=== PATIENT | male | born 1970 | race Caucasian/White ===

== ENCOUNTER 2021-03-25 11:29 | Observation (INO) | payer OTHER ==
[2021-03-25 12:01] LABS: Absolute Neutrophil Ct (ANC) 18.63 (1.4-6.9); Basophil (Absolute #) 0.01 (0-0.4); Eosinophil (Absolute #) 0 (0-0.5); Hematocrit 43.1 % (42-50); Hemoglobin 15.1 gm/dl (12.5-18.0); Lymphocyte (Absolute #) 1.05 (1.0-4.6); Mean Cell Volume 87.4 fl (78-100); Mean Corpuscular Hemoglobin 30.6 pg (26-32); Mean Platelet Volume 11.4 fl (7.5-11.0); Monocyte (Absolute #) 1.27 (0.0-1.3); Monocytes % 6.1 % (0.0-12.0); Neutrophil % 88.9 % (36.0-66.0); Platelet Count 158 K/mm3 (150-450); Red Blood Count 4.93 M/mm3 (4.1-5.6)
[2021-03-25] MEDS ORDERED: DUONEB 0.5-3 MG/3 ml Neb IH ONE ×2 (12:01→12:50)
[2021-03-25] MEDS ORDERED: solu-MEDROL 125 MG, Sterile H2O 10 ml 2 ML IV ONE ×2 (12:01)
--- NOTE | 2021-03-25 12:02 | ERPHSYRPT ---
- History of Present Illness Time Seen by Provider: 03/25/21 11:45 Source: patient Exam Limitations: no limitations Patient Subjective Stated Complaint: pt here for increase sob for 2 days , with loose stools, , pain with a deep breath, hes girlfriend is ill and in hospital Triage Nursing Assessment: pt alert, face mask in place, resp labored with excertion, skin w/d/p. no cough Physician History: Patient is a 50-year-old male presents to our ED for evaluation of shortness of breath. Shortness of breath has been ongoing for approximately 2 days. Patient describes shortness of breath is progressively worsening. Shortness of breath associated with pain upon deep inspiration. He is also experiencing loose stools. Patient states his girlfriend recently diagnosed with bronchitis. Patient appears labored with exertion. No active chest pain. Symptoms are progressive. Symptoms are moderate in intensity. No specific worsening improving factors. No obvious Covid exposures. Patient is vaccinated for Covid. Patient voices no other complaints concerns at this time. Timing/Duration: day(s) (2 days) Severity: moderate Modifying Factors: Improves With: other (Exertion worsens symptoms.) Associated Symptoms: other (Shortness of breath), No vomiting, No abdominal pain, No chest pain Allergies/Adverse Reactions: No Known Drug Allergies Allergy (Unverified 03/25/21 11:47) Home Medications: No Reportable Medications [No Reported Medications] 03/25/21 [History] Hx Tetanus, Diphtheria Vaccination/Date Given: No Hx Influenza Vaccination/Date Given: No Hx Pneumococcal Vaccination/Date Given: No Immunizations Up to Date: Yes Travel Risk - International Travel Have you traveled outside of the country in past 3 weeks: No - Coronavirus Screening Are you exhibiting any of the following symptoms?: Yes Symptoms: Shortness of Breath, Vomiting/Diarrhea, Headaches/Body Aches/Fatigue Close contact with a COVID-19 positive Pt in past 14-21 Days: No - Vaccine Status Have you recieved a Covid-19 vaccination: Yes 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 - Review of Systems Constitutional: No Symptoms, No Fever, No Chills Eyes: No Symptoms Ears, Nose, & Throat: No Symptoms Respiratory: No Symptoms, No Cough, No Dyspnea Cardiac: No Symptoms, No Chest Pain, No Edema, No Syncope Abdominal/Gastrointestinal: No Symptoms, No Abdominal Pain, No Nausea, No Vomiting, No Diarrhea Genitourinary Symptoms: No Symptoms, No Dysuria Musculoskeletal: No Symptoms, No Back Pain, No Neck Pain Skin: No Symptoms, No Rash Neurological: No Symptoms, No Dizziness, No Focal Weakness, No Sensory Changes Psychological: No Symptoms Endocrine: No Symptoms Hematologic/Lymphatic: No Symptoms Immunological/Allergic: No Symptoms All Other Systems: Reviewed and Negative - Past Medical History Pertinent Past Medical History: No - Past Surgical History Past Surgical History: No - Social History Smoking Status: Never smoker Exposure to second hand smoke: No Drug Use: none Patient Lives Alone: No - Nursing Vital Signs Nursing Vital Signs: Initial Vital Signs Temperature 97.4 F 03/25/21 11:38 Pulse Rate 120 H 03/25/21 11:38 Respiratory Rate 32 H 03/25/21 11:38 Blood Pressure 144/89 03/25/21 11:38 O2 Sat by Pulse Oximetry 94 L 03/25/21 11:38 Pain Scale Pain Intensity 0 - Physical Exam General Appearance: no apparent distress, alert Eye Exam: PERRL/EOMI, eyes nml inspection Ears, Nose, Throat Exam: normal ENT inspection, TMs normal, pharynx normal, moist mucous membranes Neck Exam: normal inspection, non-tender, supple, full range of motion Respiratory Exam: normal breath sounds, lungs clear, respiratory distress (Mild respiratory distress with labored breathing.), airway intact, No chest tenderness Cardiovascular Exam: regular rate/rhythm, normal heart sounds, normal peripheral pulses Gastrointestinal/Abdomen Exam: soft, normal bowel sounds, No tenderness, No mass Back Exam: normal inspection, normal range of motion, No CVA tenderness, No vertebral tenderness Extremity Exam: normal inspection, normal range of motion, pelvis stable Neurologic Exam: alert, oriented x 3, cooperative, normal mood/affect, nml cerebellar function, nml station & gait, sensation nml, No motor deficits Skin Exam: normal color, warm, dry, No rash Lymphatic Exam: No adenopathy SpO2 Interpretation: normal SpO2: 96 O2 Delivery: Room Air - Course Nursing assessment & vital signs reviewed: Yes EKG Interpreted by Me: RATE (120), Sinus Rhythm, Right [place] Deviation, NORMAL INTERVALS - CT Exams Chest CT Interpretation: Tele-radiologist Report (Pulmonary embolus evaluation limited by poor contrast opacification. No obvious central pulmonary embolus. Left up per lobe consolidating pneumonia. Incidental fatty liver and splenomegaly. Heart not enlarged. Aorta and normal course and caliber. No pathologic mediastinal lymphadenopathy.) Ordered Tests: Active Orders 24 hr Category Date Time Status Nursing Administrator STAT Care 03/25/21 11:47 Active EKG-ER Only STAT Care 03/25/21 11:46 Active IV Insertion STAT Care 03/25/21 11:46 Active IV Insertion-2nd Peripheral STAT Care 03/25/21 14:16 Active Oxygen-ED Only Nasal Cannula 2 lpm Care 03/25/21 15:30 Active Pulse Oximetry (ED) STAT Care 03/25/21 11:46 Active CHEST WITH CONTRAST [CT] Stat Exams 03/25/21 12:16 Completed BLOOD CULTURE Stat Lab 03/25/21 12:01 Ordered CBC W DIFF Stat Lab 03/25/21 11:49 Completed CMP Stat Lab 03/25/21 11:49 Completed D-DIMER QUANTITATIVE Stat Lab 03/25/21 11:49 Completed MAG [MAGNESIUM] Stat Lab 03/25/21 11:45 Completed TROPONIN Q3H Lab 03/25/21 11:49 Completed TROPONIN Q3H Lab 03/25/21 14:19 Received TROPONIN Q3H Lab 03/25/21 18:00 Ordered TROPONIN Q3H Lab 03/25/21 21:00 Ordered TROPONIN Q3H Lab 03/26/21 00:00 Ordered Respiratory Therapy Assessment ONCE RT 03/25/21 12:57 Completed Transfer Order Routine Transfer 03/25/21 Ordered Medication Summary Generic Name Dose Route Start Last Admin Trade Name Freq PRN Reason Stop Dose Admin Potassium Chloride 20 meq in 100 mls @ 50 mls/hr 03/25/21 14:15 03/25/21 14:25 Potassium Chloride 20 Meq In Water 100ml IV 03/25/21 18:14 50 mls/hr Q2H LEDA Administration Sodium Chloride 1,000 mls @ 100 mls/hr 03/25/21 14:15 03/25/21 14:24 Sodium Chloride 0.9% 1000 Ml IV 04/24/21 14:14 100 mls/hr .Q10H LEDA Administration Magnesium Sulfate/Dextrose 100 mls @ 100 mls/hr 03/25/21 14:45 03/25/21 15:27 Magnesium 1 Gm / 100 Ml D5w IV 03/25/21 16:44 100 mls/hr Q1H LEDA Administration Discontinued Medications Generic Name Dose Route Start Last Admin Trade Name Leonardo PRN Reason Stop Dose Admin Albuterol/Ipratropium 3 ml 03/25/21 12:01 03/25/21 12:53 Ipratropium/Albuterol Sulfate 3 Ml Ampul.Neb IH 03/25/21 12:02 3 ml STAT ONE Administration Albuterol/Ipratropium Confirm 03/25/21 12:50 Ipratropium/Albuterol Sulfate 3 Ml Ampul.Neb Administered 03/25/21 12:51 Dose 3 ml IH .STK-MED ONE Calcium Gluconate 1,000 mg 03/25/21 14:06 03/25/21 14:24 Calcium Gluconate 1000 Mg/10 Ml Vial IV 03/25/21 14:07 1,000 mg STAT ONE Administration Calcium Gluconate Confirm 03/25/21 14:17 Calcium Gluconate 1000 Mg/10 Ml Vial Administered 03/25/21 14:18 Dose 1,000 mg IV .STK-MED ONE Methylprednisolone Sodium 0 mg 03/25/21 12:01 03/25/21 12:04 Succinate 125 mg/ Sterile IV 03/25/21 12:02 125 mg Water 2 ml STAT ONE Administration Vancomycin HCl 1 gm in 200 mls @ 125 mls/hr 03/25/21 14:03 03/25/21 14:50 Vancomycin 1 Gram/200 Ml Bag IV 03/25/21 15:38 125 ml/hr STAT ONE 125 mls/hr Administration Piperacillin Sod/Tazobactam 100 mls @ 200 mls/hr 03/25/21 14:04 03/25/21 14:25 Sod 3.375 gm/ Sodium Chloride IV 03/25/21 14:33 200 mls/hr STAT ONE Administration Sodium Chloride Confirm 03/25/21 14:18 Sodium Chloride 100ml Mini-Bag Plus Administered 03/25/21 14:19 Dose 100 mls @ ud IV .STK-MED ONE Vancomycin HCl Confirm 03/25/21 14:49 Vancomycin 1 Gram/200 Ml Bag Administered 03/25/21 14:50 Dose 1 gm in 200 mls @ ud IV .STK-MED ONE Methylprednisolone Sodium Succinate Confirm 03/25/21 12:03 Methylprednis Sod Succ 125 Mg/2 Ml Vial Administered 03/25/21 12:04 Dose 125 mg .ROUTE .STK-MED ONE Piperacillin Sod/Tazobactam Sod Confirm 03/25/21 14:17 Piperacillin/Tazobactam Sodium 3.375 Gm Vial Administered 03/25/21 14:18 Dose 3.375 gm IV .STK-MED ONE Sterile Water Confirm 03/25/21 12:03 Water For Injection,Sterile 10 Ml Vial Administered 03/25/21 12:04 Dose 10 ml IJ .STK-MED ONE Lab/Rad Data: Laboratory Result Diagrams 03/25/21 11:49 03/25/21 11:49 Laboratory Results 03/25/21 03/25/21 03/25/21 Range/Units 14:11 11:49 11:49 WBC (4.0-10.5) K/mm3 RBC (4.1-5.6) M/mm3 Hgb (12.5-18.0) gm/dl Hct (42-50) % MCV (78-100) fl MCH (26-32) pg MCHC (32-36) g/dl RDW (11.5-14.0) % Plt Count (150-450) K/mm3 MPV (7.5-11.0) fl Gran % (36.0-66.0) % Eos # (Auto) (0-0.5) Absolute Lymphs (auto) (1.0-4.6) Absolute Monos (auto) (0.0-1.3) Lymphocytes % (24.0-44.0) % Monocytes % (0.0-12.0) % Eosinophils % (0.00-5.0) % Basophils % (0.0-0.4) % Absolute Granulocytes (1.4-6.9) Basophils # (0-0.4) D-Dimer 2124 H* (215-500) ng/mL Sodium (137-145) mmol/L Potassium (3.5-5.1) mmol/L Chloride (98-107) mmol/L Carbon Dioxide (22-30) mmol/L Anion Gap (5-15) MEQ/L BUN (9-20) mg/dL Creatinine (0.66-1.25) mg/dL Estimated GFR ML/MIN Glucose (74-106) mg/dL Calcium (8.4-10.2) mg/dL Magnesium (1.6-2.3) mg/dL Total Bilirubin (0.2-1.3) mg/dL AST (17-59) U/L ALT (0-50) U/L Alkaline Phosphatase (38-126) U/L Troponin I < 0.012 (0.000-0.034) ng/mL Serum Total Protein (6.3-8.2) g/dL Albumin (3.5-5.0) g/dL Influenza Type A Ag NEGATIVE (NEGATIVE) Influenza Type B Ag NEGATIVE (NEGATIVE) RSV (PCR) NEGATIVE (Negative) SARS-CoV-2 (PCR) NEGATIVE (NEGATIVE) 03/25/21 03/25/21 03/25/21 Range/Units 11:49 11:49 11:45 WBC 21.0 H (4.0-10.5) K/mm3 RBC 4.93 (4.1-5.6) M/mm3 Hgb 15.1 (12.5-18.0) gm/dl Hct 43.1 (42-50) % MCV 87.4 (78-100) fl MCH 30.6 (26-32) pg MCHC 35.0 (32-36) g/dl RDW 13.0 (11.5-14.0) % Plt Count 158 (150-450) K/mm3 MPV 11.4 H (7.5-11.0) fl Gran % 88.9 H (36.0-66.0) % Eos # (Auto) 0 (0-0.5) Absolute Lymphs (auto) 1.05 (1.0-4.6) Absolute Monos (auto) 1.27 (0.0-1.3) Lymphocytes % 5.0 L (24.0-44.0) % Monocytes % 6.1 (0.0-12.0) % Eosinophils % 0.0 (0.00-5.0) % Basophils % 0.0 (0.0-0.4) % Absolute Granulocytes 18.63 H (1.4-6.9) Basophils # 0.01 (0-0.4) D-Dimer (215-500) ng/mL Sodium 132 L (137-145) mmol/L Potassium 3.0 L* (3.5-5.1) mmol/L Chloride 97 L (98-107) mmol/L Carbon Dioxide 24 (22-30) mmol/L Anion Gap 13.9 (5-15) MEQ/L BUN 17 (9-20) mg/dL Creatinine 0.79 (0.66-1.25) mg/dL Estimated GFR > 60.0 ML/MIN Glucose 139 H (74-106) mg/dL Calcium 8.2 L (8.4-10.2) mg/dL Magnesium 1.8 (1.6-2.3) mg/dL Total Bilirubin 1.50 H (0.2-1.3) mg/dL AST 25 (17-59) U/L ALT 21 (0-50) U/L Alkaline Phosphatase 48 (38-126) U/L Troponin I (0.000-0.034) ng/mL Serum Total Protein 6.8 (6.3-8.2) g/dL Albumin 3.4 L (3.5-5.0) g/dL Influenza Type A Ag (NEGATIVE) Influenza Type B Ag (NEGATIVE) RSV (PCR) (Negative) SARS-CoV-2 (PCR) (NEGATIVE) - Progress Progress: improved Progress Note: Leukocytosis 03/25/21 13:58 Patient has a left upper lobe consolidating pneumonia. Blood cultures obtained antibiotics administered. Multiple electrolyte abnormalities including hypokalemia hyponatremia hypocalcemia. Patient is in mild respiratory distress with tachypnea worse with exertion. Patient received breathing treatment. He feels better. Patient will require IV antibiotics. Case discussed Dr. Maradiaga accepts admission to observation. Portions of this note were created with voice recognition technology. There may be grammatical, spelling, punctuation or sound alike errors 03/25/21 15:47 Discussed with .: Kaila Will see patient in: hospital (observation) Counseled pt/family regarding: lab results, diagnosis, rad results - Departure Departure Disposition: Observation Clinical Impression: Hyponatremia, Hypokalemia, Hypocalcemia, Shortness of breath, Leukocytosis, Pneumonia, Electrolyte abnormality Condition: Stable Critical Care Time: No Referrals: DOCTOR,NO FAMILY [Primary Care Provider] - Follow up/PCP as directed
[2021-03-25] MEDS ORDERED: solu-MEDROL ONE (12:03)
[2021-03-25] MEDS ORDERED: Sterile H2O 10 ml IJ ONE (12:03)
[2021-03-25 12:14] LABS: ALBUMIN 3.4 g/dL (3.5-5.0); ALKALINE PHOSPHATASE 48 U/L (38-126); ANION GAP 13.9 MEQ/L (5-15); BLOOD UREA NITROGEN 17 mg/dL (9-20); CHLORIDE 97 mmol/L (98-107); Calcium 8.2 mg/dL (8.4-10.2); Carbon Dioxide 24 mmol/L (22-30); Creatinine 1 0.79 mg/dL (0.66-1.25); EST GLOMERULAR FILTRATION RATE > 60.0 ML/MIN; Glucose 139 mg/dL (74-106); SGOT/AST 25 U/L (17-59); SGPT/ALT 21 U/L (0-50); SODIUM 132 mmol/L (137-145); Total Protein 6.8 g/dL (6.3-8.2)
--- NOTE | 2021-03-25 13:44 | XRAY ---
Indication: Left chest pain, short of breath, and diarrhea. Multiple contiguous axial images obtained through the chest using 100 cc Isovue 370 contrast and PE protocol. Comparison: None There is poor opacification of the pulmonary arteries limiting evaluation for pulmonary embolus. No obvious central pulmonary embolus. Heart not enlarged. Aorta is normal in course and caliber. No pathologic mediastinal/hilar lymphadenopathy. Lungs demonstrate large focus left upper lobe consolidating pneumonia. Remaining lungs are clear. Bony thorax intact with mild degenerative changes throughout the spine. Limited upper abdomen demonstrates fatty liver and 16.1 cm splenomegaly. Impression: 1. Pulmonary embolus evaluation limited by poor contrast opacification. No obvious central pulmonary embolus. 2. Left upper lobe consolidating pneumonia. 3. Incidental fatty liver and splenomegaly.
[2021-03-25] MEDS ORDERED: VANCOMYCIN 1 GRAM/200 ML BAG 1 GM/200 ML PIGGYBACK IV ONE ×2 (14:03→14:49)
[2021-03-25] MEDS ORDERED: Zosyn 3.375 GM Vial 3.375 GM in Sodium Chloride 100ML MINI-BAG PLUS 100 ML IV ONE (14:04)
[2021-03-25] MEDS ORDERED: Calcium Gluconate 10% 1000 MG IV ONE ×2 (14:06→14:17)
[2021-03-25] MEDS ORDERED: POTASSIUM CHLORIDE 20 mEq IN WATER 100ML 20 MEQ/100 ML BAG IV SCH (14:15)
[2021-03-25] MEDS ORDERED: Sodium Chloride 0.9% 1000 ML 1,000 ML IV SCH ×2 (14:15→16:15)
[2021-03-25] MEDS ORDERED: Zosyn 3.375 GM Vial IV ONE (14:17)
[2021-03-25] MEDS ORDERED: Sodium Chloride 100ML MINI-BAG PLUS 100 ML IV ONE (14:18)
[2021-03-25] MEDS: Magnesium 1 Gm / 100 Ml D5W*** 100 ML IV SCH ×2 (14:55→15:27)
[2021-03-25 15:08] LABS: INFLUENZA A NEGATIVE (NEGATIVE); INFLUENZA B NEGATIVE (NEGATIVE); RESPIRATORY SYNCTIAL VIRUS NEGATIVE (Negative); SARS-CoV-2 Xpert Express NEGATIVE (NEGATIVE)
[2021-03-25] MEDS ORDERED: POTASSIUM CHLORIDE 20 mEq IN WATER 100ML 20 MEQ/100 ML BAG IV ONE (16:16)
[2021-03-25] MEDS ORDERED: PROVENTIL 2.5 MG/3 ML NEB IH PRN (16:35)
[2021-03-25] MEDS ORDERED: TYLENOL 325 MG PO PRN (16:35)
[2021-03-25] MEDS ORDERED: Zofran 4 MG/2 ML VIAL IV PRN (16:35)
--- NOTE | 2021-03-25 16:39 | PCM.HP ---
History of Present Illness - Chief Complaint Chief Complaint: Pneumonia, electrolye abnormalities History of Present Illness: is a 50 year old male who presented to the ER with a complaint of 2-3 day history of cough and progressively worsening shortness of breath. He is morbidly obese, sees a doctor in [place] but is uncertain of his name, takes no regular medication. has felt hot but no objective fever, cough is nonproductive. girlfriend is currently admitted with pneumonia and also covid negative. - Review of Systems Constitutional: Chills Respiratory: Cough, Short Of Breath Cardiac: No Chest Pain, No Edema, No Syncope Abdominal/Gastrointestinal: No Abdominal Pain, No Nausea, No Vomiting, No Diarrhea Skin: No Rash All Other Systems: Reviewed and Negative Medications & Allergies Home Medications: Home Medication List No Reportable Medications [No Reported Medications] 03/25/21 [History Confirmed 03/25/21] Allergies/Adverse Reactions: Allergies Allergy/AdvReac Type Severity Reaction Status Date / Time No Known Drug Allergies Allergy Unverified 03/25/21 11:47 - Past Medical History Past Medical History: No - Past Surgical History Past Surgical History: No - Social History Smoking Status: Never smoker Exposure to second hand smoke: No Alcohol: None Drug Use: none - Physical Exam Vital Signs: Vital Signs - 24 hr Temp Pulse Resp BP Pulse Ox 03/25/21 16:03 94 L 03/25/21 15:51 96 03/25/21 15:36 100 H 20 97/71 95 03/25/21 15:16 103 H 22 106/63 92 L 03/25/21 14:00 108 H 20 92 L 03/25/21 13:00 104 H 22 106/63 94 L 03/25/21 12:57 107 H 22 93 L 03/25/21 12:00 108 H 24 114/86 94 L 03/25/21 11:51 96 03/25/21 11:46 32 H 94 L 03/25/21 11:38 97.4 F 120 H 32 H 144/89 94 L General Appearance: no apparent distress, obese Neurologic Exam: alert, oriented x 3, cooperative Respiratory Exam: rhonchi (left upper lung field) Cardiovascular Exam: regular rate/rhythm, normal heart sounds, normal peripheral pulses Gastrointestinal/Abdomen Exam: soft, normal bowel sounds, No tenderness, No mass Extremity Exam: normal inspection, normal range of motion, pelvis stable Skin Exam: normal color, warm, dry, No rash Results - Labs Lab/Micro Results: Lab Results-Last 24 Hours 03/25/21 03/25/21 03/25/21 Range/Units 11:45 11:49 11:49 WBC 21.0 H (4.0-10.5) K/mm3 RBC 4.93 (4.1-5.6) M/mm3 Hgb 15.1 (12.5-18.0) gm/dl Hct 43.1 (42-50) % MCV 87.4 (78-100) fl MCH 30.6 (26-32) pg MCHC 35.0 (32-36) g/dl RDW 13.0 (11.5-14.0) % Plt Count 158 (150-450) K/mm3 MPV 11.4 H (7.5-11.0) fl Gran % 88.9 H (36.0-66.0) % Eos # (Auto) 0 (0-0.5) Absolute Lymphs (auto) 1.05 (1.0-4.6) Absolute Monos (auto) 1.27 (0.0-1.3) Lymphocytes % 5.0 L (24.0-44.0) % Monocytes % 6.1 (0.0-12.0) % Eosinophils % 0.0 (0.00-5.0) % Basophils % 0.0 (0.0-0.4) % Absolute Granulocytes 18.63 H (1.4-6.9) Basophils # 0.01 (0-0.4) D-Dimer (215-500) ng/mL Sodium 132 L (137-145) mmol/L Potassium 3.0 L* (3.5-5.1) mmol/L Chloride 97 L (98-107) mmol/L Carbon Dioxide 24 (22-30) mmol/L Anion Gap 13.9 (5-15) MEQ/L BUN 17 (9-20) mg/dL Creatinine 0.79 (0.66-1.25) mg/dL Estimated GFR > 60.0 ML/MIN Glucose 139 H (74-106) mg/dL Calcium 8.2 L (8.4-10.2) mg/dL Magnesium 1.8 (1.6-2.3) mg/dL Total Bilirubin 1.50 H (0.2-1.3) mg/dL AST 25 (17-59) U/L ALT 21 (0-50) U/L Alkaline Phosphatase 48 (38-126) U/L Troponin I (0.000-0.034) ng/mL Serum Total Protein 6.8 (6.3-8.2) g/dL Albumin 3.4 L (3.5-5.0) g/dL Influenza Type A Ag (NEGATIVE) Influenza Type B Ag (NEGATIVE) RSV (PCR) (Negative) SARS-CoV-2 (PCR) (NEGATIVE) 03/25/21 03/25/21 03/25/21 Range/Units 11:49 11:49 14:11 WBC (4.0-10.5) K/mm3 RBC (4.1-5.6) M/mm3 Hgb (12.5-18.0) gm/dl Hct (42-50) % MCV (78-100) fl MCH (26-32) pg MCHC (32-36) g/dl RDW (11.5-14.0) % Plt Count (150-450) K/mm3 MPV (7.5-11.0) fl Gran % (36.0-66.0) % Eos # (Auto) (0-0.5) Absolute Lymphs (auto) (1.0-4.6) Absolute Monos (auto) (0.0-1.3) Lymphocytes % (24.0-44.0) % Monocytes % (0.0-12.0) % Eosinophils % (0.00-5.0) % Basophils % (0.0-0.4) % Absolute Granulocytes (1.4-6.9) Basophils # (0-0.4) D-Dimer 2124 H* (215-500) ng/mL Sodium (137-145) mmol/L Potassium (3.5-5.1) mmol/L Chloride (98-107) mmol/L Carbon Dioxide (22-30) mmol/L Anion Gap (5-15) MEQ/L BUN (9-20) mg/dL Creatinine (0.66-1.25) mg/dL Estimated GFR ML/MIN Glucose (74-106) mg/dL Calcium (8.4-10.2) mg/dL Magnesium (1.6-2.3) mg/dL Total Bilirubin (0.2-1.3) mg/dL AST (17-59) U/L ALT (0-50) U/L Alkaline Phosphatase (38-126) U/L Troponin I < 0.012 (0.000-0.034) ng/mL Serum Total Protein (6.3-8.2) g/dL Albumin (3.5-5.0) g/dL Influenza Type A Ag NEGATIVE (NEGATIVE) Influenza Type B Ag NEGATIVE (NEGATIVE) RSV (PCR) NEGATIVE (Negative) SARS-CoV-2 (PCR) NEGATIVE (NEGATIVE) 03/25/21 Range/Units 14:19 WBC (4.0-10.5) K/mm3 RBC (4.1-5.6) M/mm3 Hgb (12.5-18.0) gm/dl Hct (42-50) % MCV (78-100) fl MCH (26-32) pg MCHC (32-36) g/dl RDW (11.5-14.0) % Plt Count (150-450) K/mm3 MPV (7.5-11.0) fl Gran % (36.0-66.0) % Eos # (Auto) (0-0.5) Absolute Lymphs (auto) (1.0-4.6) Absolute Monos (auto) (0.0-1.3) Lymphocytes % (24.0-44.0) % Monocytes % (0.0-12.0) % Eosinophils % (0.00-5.0) % Basophils % (0.0-0.4) % Absolute Granulocytes (1.4-6.9) Basophils # (0-0.4) D-Dimer (215-500) ng/mL Sodium (137-145) mmol/L Potassium (3.5-5.1) mmol/L Chloride (98-107) mmol/L Carbon Dioxide (22-30) mmol/L Anion Gap (5-15) MEQ/L BUN (9-20) mg/dL Creatinine (0.66-1.25) mg/dL Estimated GFR ML/MIN Glucose (74-106) mg/dL Calcium (8.4-10.2) mg/dL Magnesium (1.6-2.3) mg/dL Total Bilirubin (0.2-1.3) mg/dL AST (17-59) U/L ALT (0-50) U/L Alkaline Phosphatase (38-126) U/L Troponin I < 0.012 (0.000-0.034) ng/mL Serum Total Protein (6.3-8.2) g/dL Albumin (3.5-5.0) g/dL Influenza Type A Ag (NEGATIVE) Influenza Type B Ag (NEGATIVE) RSV (PCR) (Negative) SARS-CoV-2 (PCR) (NEGATIVE) - Radiology Impressions Radiology Exams & Impressions: Radiology Procedures Category Date Time Status CHEST WITH CONTRAST [CT] Stat Exams 03/25/21 12:16 Completed Assessment/Plan (1) Pneumonia Current Visit: Yes Status: Acute Assessment & Plan: continue vanc and zosyn, will monitor for clinical improvement. due to positive sick contact will cover for MRSA with vanc and zosyn for pseudomonas coverage in additional to typical CAP pathogens. Code(s): J18.9 - PNEUMONIA, UNSPECIFIED ORGANISM (2) Hypoxia Current Visit: Yes Status: Acute Code(s): R09.02 - HYPOXEMIA
[2021-03-25] MEDS ORDERED: VANCOCIN 1 GM VIAL*** 1 GM in Sodium Chloride 0.9% 250 ML 250 ML IV SCH (17:00)
[2021-03-25] MEDS: Sodium Chloride 0.9% W/ 20 mEq KCl/LITER 1,000 ML IV SCH (20:51)
[2021-03-25] MEDS ORDERED: K-LYTE 25 MEQ PO ONE (22:00)
[2021-03-25] MEDS: VANCOMYCIN 2 GRAM/400 ML BAG 2 GM/400 ML PIGGYBACK IV SCH (22:10)
[2021-03-26] MEDS: Zosyn 3.375 GM Vial 3.375 GM in Sodium Chloride 100ML MINI-BAG PLUS 100 ML IV SCH ×4 (01:12→17:45)
[2021-03-26 05:03] LABS: Hematocrit 44.5 % (42-50); Hemoglobin 15.2 gm/dl (12.5-18.0); Mean Cell Volume 88.6 fl (78-100); Mean Corpuscular Hemoglobin 30.3 pg (26-32); Mean Corpuscular Hgb Concent. 34.2 g/dl (32-36); Mean Platelet Volume 11.9 fl (7.5-11.0); Platelet Count 164 K/mm3 (150-450); Red Blood Count 5.02 M/mm3 (4.1-5.6); Red Cell Distribution Width 13.3 % (11.5-14.0); White Blood Count 16.8 K/mm3 (4.0-10.5)
[2021-03-26 05:26] LABS: ALBUMIN 3.2 g/dL (3.5-5.0); ALKALINE PHOSPHATASE 48 U/L (38-126); ANION GAP 12.7 MEQ/L (5-15); BLOOD UREA NITROGEN 18 mg/dL (9-20); CHLORIDE 102 mmol/L (98-107); Calcium 8.4 mg/dL (8.4-10.2); Carbon Dioxide 27 mmol/L (22-30); Creatinine 1 0.67 mg/dL (0.66-1.25); EST GLOMERULAR FILTRATION RATE > 60.0 ML/MIN; Glucose 172 mg/dL (74-106); Potassium 3.6 mmol/L (3.5-5.1); SGOT/AST 22 U/L (17-59); SGPT/ALT 20 U/L (0-50); SODIUM 139 mmol/L (137-145); Total Protein 6.5 g/dL (6.3-8.2)
[2021-03-26] MEDS: VANCOMYCIN 2 GRAM/400 ML BAG 2 GM/400 ML PIGGYBACK IV SCH ×3 (07:41→20:57)
--- NOTE | 2021-03-26 09:13 | PCM.NOTE ---
Date and Time: 03/26/21911 Subjective Assessment: patient feeling much better today, he is on room air. cough is improved and he denies shortness of breath this morning Objective Exam General Appearance: no apparent distress Neurologic Exam: alert, oriented x 3 Respiratory Exam: rhonchi, No respiratory distress Cardiovascular Exam: regular rate/rhythm, normal heart sounds Gastrointestinal/Abdomen Exam: soft, No tenderness, No mass Extremity Exam: normal inspection, normal range of motion OBJECTIVE DATA Vital Signs: Vital Signs - 24 hr Temp Pulse Resp BP Pulse Ox 03/26/21 08:00 98.1 F 85 27 H 126/76 91 L 03/26/21 04:00 82 F 96 H 20 115/70 95 03/25/21 23:54 98.1 F 96 H 18 109/60 94 L 03/25/21 19:48 97.9 F 97 H 20 122/73 91 L 03/25/21 19:16 75 16 91 L 03/25/21 17:06 95 03/25/21 17:03 96 H 20 94 L 03/25/21 16:30 98.1 F 97 H 22 134/76 94 L 03/25/21 16:03 94 L 03/25/21 15:51 96 03/25/21 15:36 100 H 20 97/71 95 03/25/21 15:16 103 H 22 106/63 92 L 03/25/21 14:00 108 H 20 92 L 03/25/21 13:00 104 H 22 106/63 94 L 03/25/21 12:57 107 H 22 93 L 03/25/21 12:00 108 H 24 114/86 94 L 03/25/21 11:51 96 03/25/21 11:46 32 H 94 L 03/25/21 11:38 97.4 F 120 H 32 H 144/89 94 L Pain Assessment - Last Documented Pain Intensity 0 Intake and Output: Intake & Output 03/23/21 03/24/21 03/25/21 03/26/21 11:59 11:59 11:59 11:59 Intake Total 1180 Output Total 800 Balance 380 Weight 170 kg 164.3 kg Lab Results: Lab Results-Last 24 Hours 03/25/21 03/25/21 03/25/21 Range/Units 11:45 11:49 11:49 WBC 21.0 H (4.0-10.5) K/mm3 RBC 4.93 (4.1-5.6) M/mm3 Hgb 15.1 (12.5-18.0) gm/dl Hct 43.1 (42-50) % MCV 87.4 (78-100) fl MCH 30.6 (26-32) pg MCHC 35.0 (32-36) g/dl RDW 13.0 (11.5-14.0) % Plt Count 158 (150-450) K/mm3 MPV 11.4 H (7.5-11.0) fl Gran % 88.9 H (36.0-66.0) % Eos # (Auto) 0 (0-0.5) Absolute Lymphs (auto) 1.05 (1.0-4.6) Absolute Monos (auto) 1.27 (0.0-1.3) Lymphocytes % 5.0 L (24.0-44.0) % Monocytes % 6.1 (0.0-12.0) % Eosinophils % 0.0 (0.00-5.0) % Basophils % 0.0 (0.0-0.4) % Absolute Granulocytes 18.63 H (1.4-6.9) Basophils # 0.01 (0-0.4) D-Dimer (215-500) ng/mL Sodium 132 L (137-145) mmol/L Potassium 3.0 L* (3.5-5.1) mmol/L Chloride 97 L (98-107) mmol/L Carbon Dioxide 24 (22-30) mmol/L Anion Gap 13.9 (5-15) MEQ/L BUN 17 (9-20) mg/dL Creatinine 0.79 (0.66-1.25) mg/dL Estimated GFR > 60.0 ML/MIN Glucose 139 H (74-106) mg/dL Calcium 8.2 L (8.4-10.2) mg/dL Magnesium 1.8 (1.6-2.3) mg/dL Total Bilirubin 1.50 H (0.2-1.3) mg/dL AST 25 (17-59) U/L ALT 21 (0-50) U/L Alkaline Phosphatase 48 (38-126) U/L Troponin I (0.000-0.034) ng/mL Serum Total Protein 6.8 (6.3-8.2) g/dL Albumin 3.4 L (3.5-5.0) g/dL Influenza Type A Ag (NEGATIVE) Influenza Type B Ag (NEGATIVE) RSV (PCR) (Negative) SARS-CoV-2 (PCR) (NEGATIVE) 03/25/21 03/25/21 03/25/21 Range/Units 11:49 11:49 14:11 WBC (4.0-10.5) K/mm3 RBC (4.1-5.6) M/mm3 Hgb (12.5-18.0) gm/dl Hct (42-50) % MCV (78-100) fl MCH (26-32) pg MCHC (32-36) g/dl RDW (11.5-14.0) % Plt Count (150-450) K/mm3 MPV (7.5-11.0) fl Gran % (36.0-66.0) % Eos # (Auto) (0-0.5) Absolute Lymphs (auto) (1.0-4.6) Absolute Monos (auto) (0.0-1.3) Lymphocytes % (24.0-44.0) % Monocytes % (0.0-12.0) % Eosinophils % (0.00-5.0) % Basophils % (0.0-0.4) % Absolute Granulocytes (1.4-6.9) Basophils # (0-0.4) D-Dimer 2124 H* (215-500) ng/mL Sodium (137-145) mmol/L Potassium (3.5-5.1) mmol/L Chloride (98-107) mmol/L Carbon Dioxide (22-30) mmol/L Anion Gap (5-15) MEQ/L BUN (9-20) mg/dL Creatinine (0.66-1.25) mg/dL Estimated GFR ML/MIN Glucose (74-106) mg/dL Calcium (8.4-10.2) mg/dL Magnesium (1.6-2.3) mg/dL Total Bilirubin (0.2-1.3) mg/dL AST (17-59) U/L ALT (0-50) U/L Alkaline Phosphatase (38-126) U/L Troponin I < 0.012 (0.000-0.034) ng/mL Serum Total Protein (6.3-8.2) g/dL Albumin (3.5-5.0) g/dL Influenza Type A Ag NEGATIVE (NEGATIVE) Influenza Type B Ag NEGATIVE (NEGATIVE) RSV (PCR) NEGATIVE (Negative) SARS-CoV-2 (PCR) NEGATIVE (NEGATIVE) 03/25/21 03/25/21 03/25/21 Range/Units 14:19 18:08 21:00 WBC (4.0-10.5) K/mm3 RBC (4.1-5.6) M/mm3 Hgb (12.5-18.0) gm/dl Hct (42-50) % MCV (78-100) fl MCH (26-32) pg MCHC (32-36) g/dl RDW (11.5-14.0) % Plt Count (150-450) K/mm3 MPV (7.5-11.0) fl Gran % (36.0-66.0) % Eos # (Auto) (0-0.5) Absolute Lymphs (auto) (1.0-4.6) Absolute Monos (auto) (0.0-1.3) Lymphocytes % (24.0-44.0) % Monocytes % (0.0-12.0) % Eosinophils % (0.00-5.0) % Basophils % (0.0-0.4) % Absolute Granulocytes (1.4-6.9) Basophils # (0-0.4) D-Dimer (215-500) ng/mL Sodium (137-145) mmol/L Potassium (3.5-5.1) mmol/L Chloride (98-107) mmol/L Carbon Dioxide (22-30) mmol/L Anion Gap (5-15) MEQ/L BUN (9-20) mg/dL Creatinine (0.66-1.25) mg/dL Estimated GFR ML/MIN Glucose (74-106) mg/dL Calcium (8.4-10.2) mg/dL Magnesium (1.6-2.3) mg/dL Total Bilirubin (0.2-1.3) mg/dL AST (17-59) U/L ALT (0-50) U/L Alkaline Phosphatase (38-126) U/L Troponin I < 0.012 < 0.012 < 0.012 (0.000-0.034) ng/mL Serum Total Protein (6.3-8.2) g/dL Albumin (3.5-5.0) g/dL Influenza Type A Ag (NEGATIVE) Influenza Type B Ag (NEGATIVE) RSV (PCR) (Negative) SARS-CoV-2 (PCR) (NEGATIVE) 03/25/21 03/26/21 03/26/21 Range/Units 21:00 04:57 04:57 WBC 16.8 H (4.0-10.5) K/mm3 RBC 5.02 (4.1-5.6) M/mm3 Hgb 15.2 (12.5-18.0) gm/dl Hct 44.5 (42-50) % MCV 88.6 (78-100) fl MCH 30.3 (26-32) pg MCHC 34.2 (32-36) g/dl RDW 13.3 (11.5-14.0) % Plt Count 164 (150-450) K/mm3 MPV 11.9 H (7.5-11.0) fl Gran % (36.0-66.0) % Eos # (Auto) (0-0.5) Absolute Lymphs (auto) (1.0-4.6) Absolute Monos (auto) (0.0-1.3) Lymphocytes % (24.0-44.0) % Monocytes % (0.0-12.0) % Eosinophils % (0.00-5.0) % Basophils % (0.0-0.4) % Absolute Granulocytes (1.4-6.9) Basophils # (0-0.4) D-Dimer (215-500) ng/mL Sodium (137-145) mmol/L Potassium 3.0 L* (3.5-5.1) mmol/L Chloride (98-107) mmol/L Carbon Dioxide (22-30) mmol/L Anion Gap (5-15) MEQ/L BUN (9-20) mg/dL Creatinine (0.66-1.25) mg/dL Estimated GFR ML/MIN Glucose (74-106) mg/dL Calcium (8.4-10.2) mg/dL Magnesium (1.6-2.3) mg/dL Total Bilirubin (0.2-1.3) mg/dL AST (17-59) U/L ALT (0-50) U/L Alkaline Phosphatase (38-126) U/L Troponin I < 0.012 (0.000-0.034) ng/mL Serum Total Protein (6.3-8.2) g/dL Albumin (3.5-5.0) g/dL Influenza Type A Ag (NEGATIVE) Influenza Type B Ag (NEGATIVE) RSV (PCR) (Negative) SARS-CoV-2 (PCR) (NEGATIVE) 03/26/21 Range/Units 04:57 WBC (4.0-10.5) K/mm3 RBC (4.1-5.6) M/mm3 Hgb (12.5-18.0) gm/dl Hct (42-50) % MCV (78-100) fl MCH (26-32) pg MCHC (32-36) g/dl RDW (11.5-14.0) % Plt Count (150-450) K/mm3 MPV (7.5-11.0) fl Gran % (36.0-66.0) % Eos # (Auto) (0-0.5) Absolute Lymphs (auto) (1.0-4.6) Absolute Monos (auto) (0.0-1.3) Lymphocytes % (24.0-44.0) % Monocytes % (0.0-12.0) % Eosinophils % (0.00-5.0) % Basophils % (0.0-0.4) % Absolute Granulocytes (1.4-6.9) Basophils # (0-0.4) D-Dimer (215-500) ng/mL Sodium 139 D (137-145) mmol/L Potassium 3.6 (3.5-5.1) mmol/L Chloride 102 (98-107) mmol/L Carbon Dioxide 27 (22-30) mmol/L Anion Gap 12.7 (5-15) MEQ/L BUN 18 (9-20) mg/dL Creatinine 0.67 (0.66-1.25) mg/dL Estimated GFR > 60.0 ML/MIN Glucose 172 H (74-106) mg/dL Calcium 8.4 (8.4-10.2) mg/dL Magnesium (1.6-2.3) mg/dL Total Bilirubin 0.70 (0.2-1.3) mg/dL AST 22 (17-59) U/L ALT 20 (0-50) U/L Alkaline Phosphatase 48 (38-126) U/L Troponin I (0.000-0.034) ng/mL Serum Total Protein 6.5 (6.3-8.2) g/dL Albumin 3.2 L (3.5-5.0) g/dL Influenza Type A Ag (NEGATIVE) Influenza Type B Ag (NEGATIVE) RSV (PCR) (Negative) SARS-CoV-2 (PCR) (NEGATIVE) Radiology Exams: Radiology Procedures Category Date Time Status CHEST WITH CONTRAST [CT] Stat Exams 03/25/21 12:16 Completed Multi-Disciplinary Progress Notes: Multi-Disciplinary Progress Notes 03/25/21 16:52 Pharmacy Note by Lorenzo Johnson Pharmacokinetic dosing service Date: 03/25/21 Time: 1700 Objective: Patient: Samuel Gauthier Floor: 102 Age: 50 yo Serum creatinine: 0.79 mg/dL Height: 67 Inches Weight (kg): 170 Diagnosis: Pneumonia Relevant medical/social history: Cultures and sensitivities: PENDING Other labs: Assessment: IBW (kg): 66.10 Dosing wt(kg): 170 Estimated Creatinine clearance (ml/min): 106.9 CRCL method: Cockcroft and Gault using ibw(default). Drug selected: Vancomycin Loading dose (mg): 0 Vd (liters): 136.0 (factor used: 0.8 L/kg) Declan (hr-1): 0.093 Half life (hrs): 7.45 Recommended dose: 2000 mg Interval: 8 hrs Infusion time (hrs): 2.0 Predicted peak (mcg/mL): 25.6 Predicted trough (mcg/mL): 14.65 Total body weight is being used for vancomycin dosing. Renal function is stable [ ] /unstable [ ] Recommendations: Give Vancomycin 2000 mg q 8 hrs with an expected Cpeak of 25.6 mcg/ml and an expected Ctrough of 14.65 mcg/ml Renal dosing of other antibiotics (review renal dosing of other medications and list guidelines here): CECILY Thank you for the consult, will continue to follow. Signature: JOE Initialized on 03/25/21 16:52 - END OF NOTE Assessment/Plan (1) Pneumonia Current Visit: Yes Status: Acute Assessment & Plan: continue vanc/zosyn, wbc improving. if continues to improve might be ready for discharge tomorrow. Code(s): J18.9 - PNEUMONIA, UNSPECIFIED ORGANISM (2) Hypoxia Current Visit: Yes Status: Acute Code(s): R09.02 - HYPOXEMIA
[2021-03-26] MEDS: Sodium Chloride 0.9% W/ 20 mEq KCl/LITER 1,000 ML IV SCH ×2 (09:50→21:00)
[2021-03-27] MEDS: Zosyn 3.375 GM Vial 3.375 GM in Sodium Chloride 100ML MINI-BAG PLUS 100 ML IV SCH ×2 (00:32→06:21)
[2021-03-27] MEDS ORDERED: TROUGH DRUG LEVELS IJ ONE (05:30)
[2021-03-27 05:49] LABS: Hematocrit 42.5 % (42-50); Hemoglobin 14.3 gm/dl (12.5-18.0); Mean Cell Volume 89.3 fl (78-100); Mean Corpuscular Hgb Concent. 33.6 g/dl (32-36); Mean Platelet Volume 11.9 fl (7.5-11.0); Platelet Count 169 K/mm3 (150-450); Red Blood Count 4.76 M/mm3 (4.1-5.6); Red Cell Distribution Width 13.5 % (11.5-14.0); White Blood Count 13.7 K/mm3 (4.0-10.5)
[2021-03-27 06:15] LABS: ANION GAP 10.3 MEQ/L (5-15); BLOOD UREA NITROGEN 21 mg/dL (9-20); CHLORIDE 105 mmol/L (98-107); Calcium 7.7 mg/dL (8.4-10.2); Carbon Dioxide 29 mmol/L (22-30); Creatinine 1 0.69 mg/dL (0.66-1.25); EST GLOMERULAR FILTRATION RATE > 60.0 ML/MIN; Glucose 132 mg/dL (74-106); MAGNESIUM 2.2 mg/dL (1.6-2.3); Potassium 3.5 mmol/L (3.5-5.1); SODIUM 140 mmol/L (137-145)
[2021-03-27 06:43] LABS: ANISOCYTOSIS 1+; Lymphocytes 7 % (24-44); Monocyte 1 % (0.0-12.0); Neutrophils 92 % (36.-66.); Platelet Estimate NORMAL (NORMAL); Poikilocytosis 1+; Total Cells Counted 100
[2021-03-27] MEDS: VANCOMYCIN 2 GRAM/400 ML BAG 2 GM/400 ML PIGGYBACK IV SCH (06:55)
[2021-03-27 07:53] VITALS: BP 129/87; PULSE 66; O2SAT 95
--- NOTE | 2021-03-27 08:23 | PCM.DS ---
Discharge Summary Date of Admission: 03/25/21 16:00 Admitting Physician: KAREN VICTOR Primary Care Provider: NO FAMILY DOCTOR Allergies Allergies No Known Drug Allergies Allergy (Verified 03/25/21 19:15) Hospital Summary - Hospital Course Hospital Course: patient was admitted with cough and fever, found to have multifocal pneumonia. flu and covid swabs negative, responded very well to IV antibiotics. he is on room air today, cough is nearly resolved, no shortness of breath. feels back to normal, he is a very large obese man. he sees someone named "Gentry" in a clinic on [facility] - Vitals & Intake/Output Vital Signs: Vital Signs Temperature 97.1 F 03/27/21 07:52 Pulse Rate 66 03/27/21 07:52 Respiratory Rate 19 03/27/21 07:52 Blood Pressure 129/87 03/27/21 07:52 O2 Sat by Pulse Oximetry 95 03/27/21 07:52 Intake & Output: Intake & Output 03/24/21 03/25/21 03/26/21 03/27/21 11:59 11:59 11:59 11:59 Intake Total 1180 2179 Output Total 800 Balance 380 2179 Weight 170 kg 164.3 kg - Lab Result Diagrams: 03/27/21 05:30 03/27/21 05:30 Lab Results-Last 24 Hrs: Lab Results-Last 24 Hours 03/27/21 03/27/21 03/27/21 Range/Units 05:30 05:30 05:30 WBC 13.7 H (4.0-10.5) K/mm3 RBC 4.76 (4.1-5.6) M/mm3 Hgb 14.3 (12.5-18.0) gm/dl Hct 42.5 (42-50) % MCV 89.3 (78-100) fl MCH 30.0 (26-32) pg MCHC 33.6 (32-36) g/dl RDW 13.5 (11.5-14.0) % Plt Count 169 (150-450) K/mm3 MPV 11.9 H (7.5-11.0) fl Segmented Neutrophils 92 H (36.-66.) % Lymphocytes (Manual) 7 L (24-44) % Monocytes (Manual) 1 (0.0-12.0) % Platelet Estimate NORMAL (NORMAL) RBC Morphology ABNORMAL Poikilocytosis 1+ Anisocytosis 1+ Sodium 140 (137-145) mmol/L Potassium 3.5 (3.5-5.1) mmol/L Chloride 105 (98-107) mmol/L Carbon Dioxide 29 (22-30) mmol/L Anion Gap 10.3 (5-15) MEQ/L BUN 21 H (9-20) mg/dL Creatinine 0.69 (0.66-1.25) mg/dL Estimated GFR > 60.0 ML/MIN Glucose 132 H (74-106) mg/dL Calcium 7.7 L (8.4-10.2) mg/dL Magnesium 2.2 (1.6-2.3) mg/dL Vancomycin Trough 14.93 (10-20) ug/mL - Radiology Exams Ordered Rad Exams-Entire Visit: Radiology Procedures Category Date Time Status CHEST WITH CONTRAST [CT] Stat Exams 03/25/21 12:16 Completed - Procedures and Test Procedures and Tests throughout Hospitalization: Therapy Orders & Screens 03/25/21 12:57 Respiratory Therapy Assessment ONCE Comment: Diagnosis: right breast cancer 03/25/21 17:04 Oxygen NASAL CANNULA 2 lpm Comment: Diagnosis: Pneumonia, electrolye abnormalities Discharge Exam General Appearance: no apparent distress, obese Neurologic Exam: alert, oriented x 3 Respiratory Exam: normal breath sounds, lungs clear, No respiratory distress Cardiovascular Exam: regular rate/rhythm, normal heart sounds Gastrointestinal/Abdomen Exam: soft, No tenderness, No mass Skin Exam: normal color, warm, dry Final Diagnosis/Problem List - Final Discharge Diagnosis/Problem (1) Pneumonia Current Visit: Yes Status: Acute Assessment & Plan: home on po levaquin x 5 days Code(s): J18.9 - PNEUMONIA, UNSPECIFIED ORGANISM (2) Hypoxia Current Visit: Yes Status: Acute Assessment & Plan: resolved, home on room air Code(s): R09.02 - HYPOXEMIA - Discharge Disposition: Home, Self-Care Condition: Stable Prescriptions: New levoFLOXacin [Levofloxacin] 750 mg PO DAILY #5 tablet Albuterol 8 gm Mdi Hfa [Ventolin Hfa MDI] 2 puffs IH Q4-6HPRN PRN #1 unit PRN Reason: Shortness Of Breath Additional Instructions: followup with your primary care clinic in [place] in 1 week
[2021-03-29] MEDS ORDERED: TROUGH DRUG LEVELS IJ ONE (05:30)
== END 2021-03-27 10:16 | disposition home or self-care (01) ==
LOC: ED 11:29 → MED SURG 16:00
PROVIDERS: ADMIT Family Medicine; ATTEND Family Medicine
DX: J18.9 Pneumonia, unspecified organism (principal); R09.02 Hypoxemia; E66.01 Morbid (severe) obesity due to excess calories; Z20.828 Contact with and (suspected) exposure to other viral communicable diseases
CPT/HCPCS: 0241U; 36000; 36415; 71260; 80048; 80053; 80202; 83735; 84132; 84484; 85025; 85027; 85379; 87040; 93005; 93041; 93268; 94640; 94760; 94762; 96374; 96375; 99285; G0378; J0610; J2930; J3475; J3480; J7609; A9270-GY; J3370

== ENCOUNTER 2025-01-09 22:01 | Observation (INO) | payer OTHER ==
[2025-01-09 22:39] LABS: BASOPHIL % 0.9 % (0.2-1.2); Basophil (Absolute #) 0.07 x10^3/uL (0.01-0.08); Eosinophil (Absolute #) 0.35 x10^3/uL (0.04-0.54); Hematocrit 49.0 % (40.1-51.0); Hemoglobin 15.6 g/dL (13.7-17.5); IMMATURE GRAN # 0.03 x10^3u/L (0.001-0.031); IMMATURE GRAN % 0.4 % (0.001-0.429); Lymphocyte (Absolute #) 2.16 x10^3/uL (1.32-3.57); Mean Corpuscular Hemoglobin 29.8 pg (25.7-32.2); Mean Corpuscular Hgb Concent. 31.8 g/dL (32.3-36.5); Monocyte (Absolute #) 0.66 x10^3/uL (0.30-0.82); NUCLEATED RBC # 0.00 x10^3u/L (0.00-0.012); NUCLEATED RBC % 0.0 % (0.00-0.2); Platelet Count 181 x10^3/uL (163-337); Red Blood Count 5.24 x10^6/uL (4.63-6.08); White Blood Count 8.0 x10^3/uL (4.23-9.07)
[2025-01-09 23:26] LABS: Calcium 8.7 mg/dL (8.4-10.2); Carbon Dioxide 27.0 mmol/L (22-30); Creatinine 1 0.76 mg/dL (0.66-1.25); EST GLOMERULAR FILTRATION RATE 108.2 ML/MIN; Glucose 138.0 mg/dL (74-106); Potassium 4.3 mmol/L (3.5-5.1); SGOT/AST 25.0 U/L (17-59); SGPT/ALT 25.0 U/L (0-50); Total Protein 7.0 g/dL (6.3-8.2)
[2025-01-09 23:38] LABS: NT PRO BNPII 51.7 pg/mL (<300); TROPONIN < 0.012 ng/mL (0.000-0.033)
--- NOTE | 2025-01-10 00:14 | ERPHSYRPT ---
- History of Present Illness Time Seen by Provider: 01/10/25 00:10 Historian: patient Exam Limitations: no limitations Patient Subjective Stated Complaint: chest pain Triage Nursing Assessment: Pt brought in by self for c/o chest pain over the left upper chest/breast area which began around 0 tonight while pt was playing his xbox game. Pt thinks it might be anxiety because someone showed up to live with them tonight and has told them that he can't because their landlord will kick them out. Lungs clear, heart tones reg, no edema noted. Physician History: Patient is a 54-year-old male BMI of 63.6 current smoker presents to our ED for evaluation of chest pain. Chest pain described as an ache that is localized to the left upper chest. No trauma no fever. Patient symptoms started while he was playing Xbox. Patient thinks it may be anxiety but is unsure. No associated nausea vomiting or diaphoresis. Patient voices no other complaints or concerns at this time. Patient's heart score is 3. History obtained from patient. Aspirin nitroglycerin administered. Patient chest pain resolved. Differential diagnosis includes PE, ACS, trauma, pneumothorax, esophagitis Portions of this note were created with voice recognition technology. There may be grammatical, spelling, punctuation or sound alike errors Complexity of problems addressed is moderate acute complicated. No critical care time. Complexity of data reviewed and analyzed is extensive. Test ordered chest reviewed results analyzed and correlated clinically with history and physical exam. Management discussed with hospitalist who accepts admission to observation. Risk of complication at risk of morbidity/mortality of patient management is high. Patient requires hospitalization for further evaluation and treatment. Vital stable. Time spent to admit patient approximately 20 minutes. Plan of care established for shared decision making. No social determinants of health present to impede follow-up. Portions of this note were created with voice recognition technology. There may be grammatical, spelling, punctuation or sound alike errors Timing/Duration: today Activities at Onset: none Quality: aching Location: other (Left chest) Chest Pain Radiation: no radiation Severity of Pain-Max: moderate Severity of Pain-Current: mild Modifying Factors: Improves With: nothing Associated Symptoms: denies symptoms Prior Chest Pain/Cardiac Workup: no prior chest pain Nitro Today/Relief: no nitro taken today Aspirin Treatment Today: no aspirin today Allergies/Adverse Reactions: No Known Drug Allergies Allergy (Verified 01/09/25 22:08) Home Medications: No Reportable Medications [No Reported Medications] 01/09/25 [History] Hx Tetanus, Diphtheria Vaccination/Date Given: Yes Hx Influenza Vaccination/Date Given: Yes Hx Pneumococcal Vaccination/Date Given: No Travel Risk - International Travel Have you traveled outside of the country in past 3 weeks: No - Emerging Infectious Disease Are you exhibiting symptoms associated with any current EIDs: No - Review of Systems All Other Systems: Reviewed and Negative - Past Medical History Pertinent Past Medical History: Yes Neurological History: No Pertinent History ENT History: No Pertinent History Cardiac History: No Pertinent History Respiratory History: Sleep Apnea Endocrine Medical History: No Pertinent History Musculoskeletal History: Other Other Medical History: PLANTAR FASCIITIS AND ACHILLES TENDONITIS - Past Surgical History Past Surgical History: No Other Surgical History: TUBES IN EARS, TIPS OF FINGERS OF LEFT RING AND MIDDLE FINGER, SKIN GRAFT - Social History Smoking Status: Current every day smoker Exposure to second hand smoke: No Drug Use: none - Social Determinants of Health Will the patient participate in the screening: Yes Do you worry about a steady place to live?: No Do you have any problems with any of the following?: No known problems In the past 12 months,have you had to go without utilities?: No Transportation Issues: No Has anyone in your support network made you feel unsafe?: No Have you or anyone in your house had to go w/o enough food: No - Nursing Vital Signs Nursing Vital Signs: Initial Vital Signs Temperature 98.3 F 01/09/25 22:06 Pulse Rate 88 01/09/25 22:06 Respiratory Rate 20 01/09/25 22:06 Blood Pressure 131/97 01/09/25 22:06 O2 Sat by Pulse Oximetry 97 01/09/25 22:06 Pain Scale Pain Intensity 3 - Physical Exam General Appearance: no apparent distress, alert Eye Exam: PERRL/EOMI, eyes nml inspection Ears, Nose, Throat Exam: normal ENT inspection, moist mucous membranes Neck Exam: normal inspection, full range of motion Respiratory Exam: normal breath sounds, lungs clear, airway intact, No respiratory distress Cardiovascular Exam: regular rate/rhythm, normal heart sounds Gastrointestinal/Abdomen Exam: soft, No tenderness, No mass Back Exam: normal inspection, No CVA tenderness, No vertebral tenderness Extremity Exam: normal inspection, normal range of motion Neurologic Exam: alert, oriented x 3, cooperative, normal mood/affect, sensation nml, No motor deficits Skin Exam: normal color, warm, dry Lymphatic Exam: No adenopathy SpO2 Interpretation: normal SpO2: 96 O2 Delivery: Room Air - Course Nursing assessment & vital signs reviewed: Yes EKG Interpreted by Me: RATE (86), Sinus Rhythm, NORMAL AXIS, NORMAL INTERVALS, NORMAL QRS - CT Exams Chest CT Interpretation: Tele-radiologist Report (Multiple tiny scattered calcific foci are noted involving both lobes of the) Ordered Tests: Active Orders 24 hr Category Date Time Status Elevator Constructor Helper STAT Care 01/09/25 22:22 Active EKG-ER Only STAT Care 01/09/25 22:22 Active IV Insertion STAT Care 01/09/25 22:22 Active Pulse Oximetry (ED) STAT Care 01/09/25 22:22 Active CHEST 1 VIEW (PORTABLE) Stat Exams 01/09/25 22:22 Taken CHEST WITH CONTRAST [CT] Stat Exams 01/09/25 23:15 Completed CBC W DIFF Stat Lab 01/09/25 22:34 Completed CMP Stat Lab 01/09/25 22:34 Completed D-DIMER QUANTITATIVE Stat Lab 01/09/25 22:34 Completed NT PRO BNPII Stat Lab 01/09/25 22:34 Completed TROPONIN Q4H Lab 01/09/25 22:34 Completed TROPONIN Q4H Lab 01/10/25 02:35 Completed TROPONIN Q4H Lab 01/10/25 06:30 Ordered Medication Summary Discontinued Medications Generic Name Dose Route Start Last Admin Trade Name Kemalq PRN Reason Stop Dose Admin Aspirin 324 mg 01/10/25 00:13 01/10/25 00:36 Aspirin 81 Mg Tab.Chew PO 01/10/25 00:14 324 mg STAT ONE Administration Aspirin Confirm 01/10/25 00:35 Aspirin 81 Mg Tab.Chew Administered 01/10/25 00:36 Dose 324 mg .ROUTE .STK-MED ONE Nitroglycerin 1 gm 01/10/25 00:13 01/10/25 00:36 Nitroglycerin 1 Gm Packet TOP 01/10/25 00:14 1 gm STAT ONE Administration Nitroglycerin Confirm 01/10/25 00:35 Nitroglycerin 1 Gm Packet Administered 01/10/25 00:36 Dose 1 gm .ROUTE .STK-MED ONE Lab/Rad Data: Laboratory Result Diagrams 01/09/25 22:34 01/09/25 22:34 Laboratory Results 01/10/25 01/09/25 01/09/25 Range/Units 02:35 22:34 22:34 WBC (4.23-9.07) x10^3/uL RBC (4.63-6.08) x10^6/uL Hgb (13.7-17.5) g/dL Hct (40.1-51.0) % MCV (79.0-92.2) fL MCH (25.7-32.2) pg MCHC (32.3-36.5) g/dL RDW (11.6-14.4) % Plt Count (163-337) x10^3/uL MPV (9.4-12.4) fL Gran % (34.0-67.9) % Immature Gran % (Auto) (0.001-0.429) % Nucleat RBC Rel Count (0.00-0.2) % Eos # (Auto) (0.04-0.54) x10^3/uL Immature Gran # (Auto) (0.001-0.031) x10^3u/L Absolute Lymphs (auto) (1.32-3.57) x10^3/uL Absolute Monos (auto) (0.30-0.82) x10^3/uL Absolute Nucleated RBC (0.00-0.012) x10^3u/L Lymphocytes % (21.8-53.1) % Monocytes % (5.3-12.2) % Eosinophils % (0.8-7.0) % Basophils % (0.2-1.2) % Absolute Granulocytes (1.78-5.38) x10^3/uL Basophils # (0.01-0.08) x10^3/uL D-Dimer 1.12 H* (0.0-0.50) mg/L Sodium (135-145) mmol/L Potassium (3.5-5.1) mmol/L Chloride (98-107) mmol/L Carbon Dioxide (22-30) mmol/L Anion Gap (5-15) MEQ/L BUN (9-20) mg/dL Creatinine (0.66-1.25) mg/dL Estimated GFR ML/MIN Glucose (74-106) mg/dL Calcium (8.4-10.2) mg/dL Total Bilirubin (0.2-1.3) mg/dL AST (17-59) U/L ALT (0-50) U/L Alkaline Phosphatase (38-126) U/L Troponin I < 0.012 < 0.012 (0.000-0.033) ng/mL NT-Pro-B Natriuret Pep 51.7 (<300) pg/mL Serum Total Protein (6.3-8.2) g/dL Albumin (3.5-5.0) g/dL 01/09/25 01/09/25 Range/Units 22:34 22:34 WBC 8.0 (4.23-9.07) x10^3/uL RBC 5.24 (4.63-6.08) x10^6/uL Hgb 15.6 (13.7-17.5) g/dL Hct 49.0 (40.1-51.0) % MCV 93.5 H (79.0-92.2) fL MCH 29.8 (25.7-32.2) pg MCHC 31.8 L (32.3-36.5) g/dL RDW 12.9 (11.6-14.4) % Plt Count 181 (163-337) x10^3/uL MPV 11.0 (9.4-12.4) fL Gran % 58.9 (34.0-67.9) % Immature Gran % (Auto) 0.4 (0.001-0.429) % Nucleat RBC Rel Count 0.0 (0.00-0.2) % Eos # (Auto) 0.35 (0.04-0.54) x10^3/uL Immature Gran # (Auto) 0.03 (0.001-0.031) x10^3u/L Absolute Lymphs (auto) 2.16 (1.32-3.57) x10^3/uL Absolute Monos (auto) 0.66 (0.30-0.82) x10^3/uL Absolute Nucleated RBC 0.00 (0.00-0.012) x10^3u/L Lymphocytes % 27.1 (21.8-53.1) % Monocytes % 8.3 (5.3-12.2) % Eosinophils % 4.4 (0.8-7.0) % Basophils % 0.9 (0.2-1.2) % Absolute Granulocytes 4.69 (1.78-5.38) x10^3/uL Basophils # 0.07 (0.01-0.08) x10^3/uL D-Dimer (0.0-0.50) mg/L Sodium 138 (135-145) mmol/L Potassium 4.3 (3.5-5.1) mmol/L Chloride 104 (98-107) mmol/L Carbon Dioxide 27 (22-30) mmol/L Anion Gap 11.9 (5-15) MEQ/L BUN 15 (9-20) mg/dL Creatinine 0.76 (0.66-1.25) mg/dL Estimated GFR 108.2 ML/MIN Glucose 138 H (74-106) mg/dL Calcium 8.7 (8.4-10.2) mg/dL Total Bilirubin 0.50 (0.2-1.3) mg/dL AST 25 (17-59) U/L ALT 25 (0-50) U/L Alkaline Phosphatase 60 (38-126) U/L Troponin I (0.000-0.033) ng/mL NT-Pro-B Natriuret Pep (<300) pg/mL Serum Total Protein 7.0 (6.3-8.2) g/dL Albumin 3.9 (3.5-5.0) g/dL - Progress Progress: improved Air Movement: good Progress Note: Patient is a 54-year-old male BMI of 63.6 current smoker presents to our ED for evaluation of chest pain. Chest pain described as an ache that is localized to the left upper chest. No trauma no fever. Patient symptoms started while he was playing Xbox. Physical exam shows a 54-year-old male BMI of 63.6. No acute distress. D-dimer positive. CTA chest negative for PE. However calcified granulomas observed. Troponin negative x 2. Patient's heart score is 3. History obtained from patient Differential diagnosis includes PE, ACS, trauma, pneumothorax Complexity of problems addressed is moderate acute complicated. No critical care time. Complex of data reviewed and analyzed is extensive. Test ordered chest reviewed results analyzed and correlated clinically with history and physical exam. Management discussed with hospitalist who accepts admission to observation. Risk of complication and or risk of morbidity/mortality of patient management is high. Patient requires hospitalization for further evaluation and treatment. Patient will be admitted for further evaluation and treatment. Vital stable. Time spent to admit patient approximately 15 minutes. Plan of care established for shared decision making. No social determinants of health present to impede follow-up. Portions of this note were created with voice recognition technology. There may be grammatical, spelling, punctuation or sound alike errors 01/10/25 02:28 Discussed with hospitalist admission to observation at 3:08 AM 01/10/25 03:08 Blood Culture(s) Obtained: No Antibiotics given: No Discussed with .: Arsen Will see patient in: hospital (observation) Counseled pt/family regarding: lab results, diagnosis, rad results - Departure Departure Disposition: Observation Clinical Impression: Chest pain, ACS (acute coronary syndrome) Condition: Stable Critical Care Time: No Referrals: DOCTOR,NO FAMILY [Primary Care Provider, UNKNOWN] - Follow up/PCP as directed
[2025-01-10] MEDS ORDERED: BABY ASPIRIN 81 MG CHEW ONE (00:35)
[2025-01-10] MEDS ORDERED: NITRO-BID 2% UD PACKETS ONE (00:35)
[2025-01-10] MEDS: NITRO-BID 2% UD PACKETS TOP ONE (00:36)
[2025-01-10] MEDS: BABY ASPIRIN 81 MG CHEW PO ONE (00:36)
--- NOTE | 2025-01-10 01:37 | XRAY ---
CLINICAL HISTORY: pain COMPARISON: 03/25/2021 12:04:26 PLASTIC TILE LAYER TECHNIQUE: Contiguous axial images were obtained from the neck base through the upper abdomen following intravenous administration of contrast material. If IV contrast material had not been administered, the likelihood of detecting abnormalities relevant to the patient's condition would have been substantially decreased. In addition, sagittal and coronal reconstructions were performed. The CT scan was performed according to ALARA (as low as reasonably achievable). FINDINGS: Multiple tiny scattered calcific foci are noted involving both lobes of the lungs, suggesting the possibility of sequelae of prior infection; calcified granuloma. The lungs are clear, with no focal areas of consolidation. The central airways are patent. There are no pleural effusions. No pneumothorax is seen. No axillary, hilar, or mediastinal adenopathy is identified. The visualized thyroid is unremarkable. The heart, aorta, and pulmonary arteries are of normal size and configuration. No pericardial effusion is identified. Imaged portions of the upper abdomen are unremarkable. No aggressive appearing osseous lesions are identified. IMPRESSION: Multiple tiny scattered calcific foci are noted involving both lobes of the lungs, suggesting the possibility of sequelae of prior infection; calcified granuloma. Clinicopathological correlation is suggested. Stable. Prior consolidation involving the left lung is resolved. No other new interval abnormality since the prior study. Electronically Signed by: Lane Dela Cruz MD. (01/10/2025 01:36:14 EST)
[2025-01-10] MEDS ORDERED: TYLENOL 325 MG PO PRN (04:27)
--- NOTE | 2025-01-10 04:27 | PCM.HP ---
History of Present Illness - Chief Complaint Chief Complaint: Chest pain, ACS History of Present Illness: is a 54 year old male with morbid obesity who presents with chest pain. He reports chest pain is in the left side of his chest and started around 7 or 8pm when he was playing video games. He denies similar episodes of chest pain. He denies SOB. He thinks it may have been anxiety. In ED he was given ASA and NTG and chest pain resolved. CT chest negative for PE. Troponin negative x2. He is being admitted to further r/o DC due to his heart score being 3. - Review of Systems Constitutional: No Symptoms Eyes: No Symptoms Ears, Nose, & Throat: No Symptoms Respiratory: No Symptoms Cardiac: Chest Pain Abdominal/Gastrointestinal: No Symptoms Genitourinary Symptoms: No Symptoms Musculoskeletal: No Symptoms Skin: No Symptoms Neurological: No Symptoms Psychological: No Symptoms Endocrine: No Symptoms Hematologic/Lymphatic: No Symptoms Immunological/Allergic: No Symptoms Medications & Allergies Home Medications: Home Medication List No Reportable Medications [No Reported Medications] 01/09/25 [History Confirmed 01/10/25] Allergies/Adverse Reactions: Allergies Allergy/AdvReac Type Severity Reaction Status Date / Time No Known Drug Allergies Allergy Verified 01/10/25 03:32 - Past Medical History Past Medical History: Yes Neurological History: No Pertinent History ENT History: No Pertinent History Cardiac History: No Pertinent History Respiratory History: Sleep Apnea Endocrine Medical History: No Pertinent History Musculoskelatal History: Other Comment: 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, PLANTAR FASCIITIS AND ACHILLES TENDONITIS - Past Surgical History Past Surgical History: Yes Other Surgical History: TUBES IN EARS, TIPS OF FINGERS OF LEFT RING AND MIDDLE FINGER, SKIN GRAFT - Social History Smoking Status: Never smoker Exposure to second hand smoke: No Alcohol: None Drug Use: none - Social Determinants of Health Will the patient participate in the screening: Yes Do you worry about a steady place to live?: No Do you have any problems with any of the following?: Other In the past 12 months,have you had to go without utilities?: No Have you or anyone in your house had to go without enough: No Transportation Issues: No Has anyone in your support network made you feel unsafe?: No Does the patient want assistance with any of the above?: No Comment: States C-Pap at home is not currently functioning properly and would like assistance with getting a new one. Also indicates he needs assistance with getting a primary care physician prior to discharge. - Physical Exam Vital Signs: Vital Signs - 24 hr Temp Pulse Pulse Resp BP BP Pulse Ox 01/10/25 03:59 97.8 F 92 H 20 115/58 91 L 01/10/25 03:11 96 01/10/25 03:02 94 H 18 93 L 01/10/25 02:30 94 H 20 135/73 94 L 01/10/25 02:00 97 H 18 141/77 94 L 01/10/25 01:30 94 H 22 125/85 95 01/10/25 01:00 89 22 133/80 94 L 01/10/25 00:30 93 H 21 137/79 95 01/10/25 00:18 135/74 95 01/09/25 23:30 127/82 01/09/25 23:13 127/78 95 01/09/25 23:00 87 19 126/85 96 01/09/25 22:31 93 H 27 H 108/82 96 01/09/25 22:22 96 01/09/25 22:09 88 01/09/25 22:06 98.3 F 87 22 131/97 131/97 96 General Appearance: no apparent distress, obese Neurologic Exam: alert, oriented x 3 Eye Exam: PERRL/EOMI, No scleral icterus Neck Exam: normal inspection, No JVD Respiratory Exam: normal breath sounds, lungs clear Cardiovascular Exam: regular rate/rhythm, normal heart sounds Gastrointestinal/Abdomen Exam: soft, normal bowel sounds, tenderness Extremity Exam: normal inspection, normal range of motion, No tenderness Skin Exam: normal color, warm, dry Results - Labs Lab/Micro Results: Lab Results-Last 24 Hours 01/09/25 01/09/25 01/09/25 Range/Units 22:34 22:34 22:34 WBC 8.0 (4.23-9.07) x10^3/uL RBC 5.24 (4.63-6.08) x10^6/uL Hgb 15.6 (13.7-17.5) g/dL Hct 49.0 (40.1-51.0) % MCV 93.5 H (79.0-92.2) fL MCH 29.8 (25.7-32.2) pg MCHC 31.8 L (32.3-36.5) g/dL RDW 12.9 (11.6-14.4) % Plt Count 181 (163-337) x10^3/uL MPV 11.0 (9.4-12.4) fL Gran % 58.9 (34.0-67.9) % Immature Gran % (Auto) 0.4 (0.001-0.429) % Nucleat RBC Rel Count 0.0 (0.00-0.2) % Eos # (Auto) 0.35 (0.04-0.54) x10^3/uL Immature Gran # (Auto) 0.03 (0.001-0.031) x10^3u/L Absolute Lymphs (auto) 2.16 (1.32-3.57) x10^3/uL Absolute Monos (auto) 0.66 (0.30-0.82) x10^3/uL Absolute Nucleated RBC 0.00 (0.00-0.012) x10^3u/L Lymphocytes % 27.1 (21.8-53.1) % Monocytes % 8.3 (5.3-12.2) % Eosinophils % 4.4 (0.8-7.0) % Basophils % 0.9 (0.2-1.2) % Absolute Granulocytes 4.69 (1.78-5.38) x10^3/uL Basophils # 0.07 (0.01-0.08) x10^3/uL D-Dimer 1.12 H* (0.0-0.50) mg/L Sodium 138 (135-145) mmol/L Potassium 4.3 (3.5-5.1) mmol/L Chloride 104 (98-107) mmol/L Carbon Dioxide 27 (22-30) mmol/L Anion Gap 11.9 (5-15) MEQ/L BUN 15 (9-20) mg/dL Creatinine 0.76 (0.66-1.25) mg/dL Estimated GFR 108.2 ML/MIN Glucose 138 H (74-106) mg/dL Calcium 8.7 (8.4-10.2) mg/dL Total Bilirubin 0.50 (0.2-1.3) mg/dL AST 25 (17-59) U/L ALT 25 (0-50) U/L Alkaline Phosphatase 60 (38-126) U/L Troponin I (0.000-0.033) ng/mL NT-Pro-B Natriuret Pep (<300) pg/mL Serum Total Protein 7.0 (6.3-8.2) g/dL Albumin 3.9 (3.5-5.0) g/dL 01/09/25 01/10/25 Range/Units 22:34 02:35 WBC (4.23-9.07) x10^3/uL RBC (4.63-6.08) x10^6/uL Hgb (13.7-17.5) g/dL Hct (40.1-51.0) % MCV (79.0-92.2) fL MCH (25.7-32.2) pg MCHC (32.3-36.5) g/dL RDW (11.6-14.4) % Plt Count (163-337) x10^3/uL MPV (9.4-12.4) fL Gran % (34.0-67.9) % Immature Gran % (Auto) (0.001-0.429) % Nucleat RBC Rel Count (0.00-0.2) % Eos # (Auto) (0.04-0.54) x10^3/uL Immature Gran # (Auto) (0.001-0.031) x10^3u/L Absolute Lymphs (auto) (1.32-3.57) x10^3/uL Absolute Monos (auto) (0.30-0.82) x10^3/uL Absolute Nucleated RBC (0.00-0.012) x10^3u/L Lymphocytes % (21.8-53.1) % Monocytes % (5.3-12.2) % Eosinophils % (0.8-7.0) % Basophils % (0.2-1.2) % Absolute Granulocytes (1.78-5.38) x10^3/uL Basophils # (0.01-0.08) x10^3/uL D-Dimer (0.0-0.50) mg/L Sodium (135-145) mmol/L Potassium (3.5-5.1) mmol/L Chloride (98-107) mmol/L Carbon Dioxide (22-30) mmol/L Anion Gap (5-15) MEQ/L BUN (9-20) mg/dL Creatinine (0.66-1.25) mg/dL Estimated GFR ML/MIN Glucose (74-106) mg/dL Calcium (8.4-10.2) mg/dL Total Bilirubin (0.2-1.3) mg/dL AST (17-59) U/L ALT (0-50) U/L Alkaline Phosphatase (38-126) U/L Troponin I < 0.012 < 0.012 (0.000-0.033) ng/mL NT-Pro-B Natriuret Pep 51.7 (<300) pg/mL Serum Total Protein (6.3-8.2) g/dL Albumin (3.5-5.0) g/dL - Radiology Impressions Radiology Exams & Impressions: Radiology Procedures Category Date Time Status CHEST 1 VIEW (PORTABLE) Stat Exams 01/09/25 22:22 Taken CHEST WITH CONTRAST [CT] Stat Exams 01/09/25 23:15 Completed Assessment/Plan (1) Chest pain Current Visit: Yes Status: Acute Assessment & Plan: Troponin negative x2. Will repeat 3rd troponin. Further eval pending 3rd troponin Continue ASA CT chest was negative for PE Code(s): R07.9 - CHEST PAIN, UNSPECIFIED (2) Sleep apnea in adult Current Visit: Yes Status: Acute Code(s): G47.30 - SLEEP APNEA, UNSPECIFIED (3) Morbid obesity Current Visit: Yes Status: Acute Code(s): E66.01 - MORBID (SEVERE) OBESITY DUE TO EXCESS CALORIES Telemedicine Encounter - Telemedicine Encounter Telemedicine Encounter: "The entirety of this encounter was performed via Telemedicine" This visit was performed using real-time audio and video connection between my location and thepatients locationwith the assistance of a surrogateat the patients location. Written or verbal consent was obtained from the patient/guardian to perform this visit [facility]. Any patient questions regarding the telemedicine interaction were answered.
[2025-01-10] MEDS ORDERED: Nitrostat 0.4 MG Tablet SL PRN (04:29)
[2025-01-10 07:38] LABS: BASOPHIL % 1.0 % (0.2-1.2); Basophil (Absolute #) 0.08 x10^3/uL (0.01-0.08); Eosinophil (Absolute #) 0.30 x10^3/uL (0.04-0.54); Hematocrit 42.8 % (40.1-51.0); Hemoglobin 14.3 g/dL (13.7-17.5); IMMATURE GRAN # 0.02 x10^3u/L (0.001-0.031); IMMATURE GRAN % 0.3 % (0.001-0.429); Lymphocyte (Absolute #) 2.06 x10^3/uL (1.32-3.57); Mean Corpuscular Hemoglobin 30.0 pg (25.7-32.2); Mean Corpuscular Hgb Concent. 33.4 g/dL (32.3-36.5); Monocyte (Absolute #) 0.59 x10^3/uL (0.30-0.82); NUCLEATED RBC # 0.00 x10^3u/L (0.00-0.012); NUCLEATED RBC % 0.0 % (0.00-0.2); Platelet Count 195 x10^3/uL (163-337); Red Blood Count 4.77 x10^6/uL (4.63-6.08); White Blood Count 7.9 x10^3/uL (4.23-9.07)
[2025-01-10 07:47] LABS: Calcium 8.5 mg/dL (8.4-10.2); Carbon Dioxide 26.0 mmol/L (22-30); Creatinine 1 0.71 mg/dL (0.66-1.25); EST GLOMERULAR FILTRATION RATE 110.4 ML/MIN; Glucose 110.0 mg/dL (74-106); Potassium 4.2 mmol/L (3.5-5.1); SGOT/AST 26.0 U/L (17-59); SGPT/ALT 23.0 U/L (0-50); Total Protein 6.6 g/dL (6.3-8.2)
[2025-01-10] MEDS: ECOTRIN 81 MG PO SCH (08:55)
--- NOTE | 2025-01-10 08:56 | XRAY ---
Indication: Pain. Comparison: None Portable chest demonstrates CT proven tiny bilateral nodules favored to be granulomatous in etiology. No focal infiltrate, consolidation, or large effusion. Heart not enlarged. Bony thorax intact with osteopenia and mild degenerative changes. Impression: Nonacute chest with chronic features.
--- NOTE | 2025-01-10 10:26 | PCM.DS ---
Discharge Summary Date of Admission: 01/10/25 03:15 Date of Discharge: 01/10/25 Admitting Physician: MARIZOL FRYE MD Primary Care Provider: NO FAMILY DOCTOR Allergies Allergies No Known Drug Allergies Allergy (Verified 01/10/25 03:32) Hospital Summary - Hospital Course Hospital Course: Mr. JEWELL is a 54-year-old male with morbid obesity and known sleep apnea who presented to the ED with sudden onset left-sided chest pain that began while he was playing video games around 78 PM. He described the pain as non-radiating and denied shortness of breath, diaphoresis, or prior similar episodes. He suspected anxiety but sought care due to the persistent nature of the discomfort. In the ED, he was treated with aspirin and sublingual nitroglycerin, after which the chest pain fully resolved. Initial workup included an EKG demonstrating normal sinus rhythm without ST-segment changes, and serial troponins were ordered due to a HEART score of 3. The first two high-sensitivity troponins were negative, and a CT chest with PE protocol showed no evidence of central PE per radiologist Dr. Stubbs (on re-read as this was not mentioned on original report). The CT did note multiple tiny scattered calcific pulmonary foci consistent with healed granulomatous disease, and resolution of prior left- sided consolidation, with no new interval abnormalities. During observation, he remained hemodynamically stable with no recurrence of chest pain. A third troponin remained negative, and repeat EKG again showed normal sinus rhythm without ischemic features. He tolerated PO intake, remained ambulatory, and expressed a strong desire for discharge. Given resolution of symptoms, negative serial biomarkers, reassuring cardiac and pulmonary imaging, and stable exam, he was deemed appropriate for discharge. Outpatient cardiology follow-up has been arranged to complete the evaluation of his chest pain and cardiovascular risk profile. Patient has a history of ALL may require OP sleep study for new CPAP with Dr. Vogt. Discharge Note New Diagnosis: Chest Pain New Medications: ASA 81mg daily Follow Up: Cardiology/PCP I spent 35 minutes [id number] with the patient on the day of discharge performing discharge exam, discussing hospital stay and discharge instructions with patient and caregivers, preparation of discharge records, prescriptions & referral forms and addressing any questions/concerns the patient had as documented above. - Vitals & Intake/Output Vital Signs: Vital Signs Temperature 97.7 F 01/10/25 08:00 Pulse Rate 77 01/10/25 08:00 Respiratory Rate 17 01/10/25 08:00 Blood Pressure 97/53 01/10/25 08:00 O2 Sat by Pulse Oximetry 92 L 01/10/25 08:00 Intake & Output: Intake & Output 01/07/25 01/08/25 01/09/25 01/10/25 11:59 11:59 11:59 11:59 Intake Total 480 Balance 480 Weight 183 kg - Lab Result Diagrams: 01/10/25 06:18 01/10/25 06:18 Lab Results-Last 24 Hrs: Lab Results-Last 24 Hours 01/09/25 01/09/25 01/09/25 Range/Units 22:34 22:34 22:34 WBC 8.0 (4.23-9.07) x10^3/uL RBC 5.24 (4.63-6.08) x10^6/uL Hgb 15.6 (13.7-17.5) g/dL Hct 49.0 (40.1-51.0) % MCV 93.5 H (79.0-92.2) fL MCH 29.8 (25.7-32.2) pg MCHC 31.8 L (32.3-36.5) g/dL RDW 12.9 (11.6-14.4) % Plt Count 181 (163-337) x10^3/uL MPV 11.0 (9.4-12.4) fL Gran % 58.9 (34.0-67.9) % Immature Gran % (Auto) 0.4 (0.001-0.429) % Nucleat RBC Rel Count 0.0 (0.00-0.2) % Eos # (Auto) 0.35 (0.04-0.54) x10^3/uL Immature Gran # (Auto) 0.03 (0.001-0.031) x10^3u/L Absolute Lymphs (auto) 2.16 (1.32-3.57) x10^3/uL Absolute Monos (auto) 0.66 (0.30-0.82) x10^3/uL Absolute Nucleated RBC 0.00 (0.00-0.012) x10^3u/L Lymphocytes % 27.1 (21.8-53.1) % Monocytes % 8.3 (5.3-12.2) % Eosinophils % 4.4 (0.8-7.0) % Basophils % 0.9 (0.2-1.2) % Absolute Granulocytes 4.69 (1.78-5.38) x10^3/uL Basophils # 0.07 (0.01-0.08) x10^3/uL D-Dimer 1.12 H* (0.0-0.50) mg/L Sodium 138 (135-145) mmol/L Potassium 4.3 (3.5-5.1) mmol/L Chloride 104 (98-107) mmol/L Carbon Dioxide 27 (22-30) mmol/L Anion Gap 11.9 (5-15) MEQ/L BUN 15 (9-20) mg/dL Creatinine 0.76 (0.66-1.25) mg/dL Estimated GFR 108.2 ML/MIN Glucose 138 H (74-106) mg/dL Calcium 8.7 (8.4-10.2) mg/dL Total Bilirubin 0.50 (0.2-1.3) mg/dL AST 25 (17-59) U/L ALT 25 (0-50) U/L Alkaline Phosphatase 60 (38-126) U/L Troponin I (0.000-0.033) ng/mL NT-Pro-B Natriuret Pep (<300) pg/mL Serum Total Protein 7.0 (6.3-8.2) g/dL Albumin 3.9 (3.5-5.0) g/dL 01/09/25 01/10/25 01/10/25 Range/Units 22:34 02:35 06:18 WBC (4.23-9.07) x10^3/uL RBC (4.63-6.08) x10^6/uL Hgb (13.7-17.5) g/dL Hct (40.1-51.0) % MCV (79.0-92.2) fL MCH (25.7-32.2) pg MCHC (32.3-36.5) g/dL RDW (11.6-14.4) % Plt Count (163-337) x10^3/uL MPV (9.4-12.4) fL Gran % (34.0-67.9) % Immature Gran % (Auto) (0.001-0.429) % Nucleat RBC Rel Count (0.00-0.2) % Eos # (Auto) (0.04-0.54) x10^3/uL Immature Gran # (Auto) (0.001-0.031) x10^3u/L Absolute Lymphs (auto) (1.32-3.57) x10^3/uL Absolute Monos (auto) (0.30-0.82) x10^3/uL Absolute Nucleated RBC (0.00-0.012) x10^3u/L Lymphocytes % (21.8-53.1) % Monocytes % (5.3-12.2) % Eosinophils % (0.8-7.0) % Basophils % (0.2-1.2) % Absolute Granulocytes (1.78-5.38) x10^3/uL Basophils # (0.01-0.08) x10^3/uL D-Dimer (0.0-0.50) mg/L Sodium (135-145) mmol/L Potassium (3.5-5.1) mmol/L Chloride (98-107) mmol/L Carbon Dioxide (22-30) mmol/L Anion Gap (5-15) MEQ/L BUN (9-20) mg/dL Creatinine (0.66-1.25) mg/dL Estimated GFR ML/MIN Glucose (74-106) mg/dL Calcium (8.4-10.2) mg/dL Total Bilirubin (0.2-1.3) mg/dL AST (17-59) U/L ALT (0-50) U/L Alkaline Phosphatase (38-126) U/L Troponin I < 0.012 < 0.012 < 0.012 (0.000-0.033) ng/mL NT-Pro-B Natriuret Pep 51.7 (<300) pg/mL Serum Total Protein (6.3-8.2) g/dL Albumin (3.5-5.0) g/dL 01/10/25 01/10/25 Range/Units 06:18 06:18 WBC 7.9 (4.23-9.07) x10^3/uL RBC 4.77 (4.63-6.08) x10^6/uL Hgb 14.3 (13.7-17.5) g/dL Hct 42.8 (40.1-51.0) % MCV 89.7 (79.0-92.2) fL MCH 30.0 (25.7-32.2) pg MCHC 33.4 (32.3-36.5) g/dL RDW 13.2 (11.6-14.4) % Plt Count 195 (163-337) x10^3/uL MPV 11.5 (9.4-12.4) fL Gran % 61.2 (34.0-67.9) % Immature Gran % (Auto) 0.3 (0.001-0.429) % Nucleat RBC Rel Count 0.0 (0.00-0.2) % Eos # (Auto) 0.30 (0.04-0.54) x10^3/uL Immature Gran # (Auto) 0.02 (0.001-0.031) x10^3u/L Absolute Lymphs (auto) 2.06 (1.32-3.57) x10^3/uL Absolute Monos (auto) 0.59 (0.30-0.82) x10^3/uL Absolute Nucleated RBC 0.00 (0.00-0.012) x10^3u/L Lymphocytes % 26.2 (21.8-53.1) % Monocytes % 7.5 (5.3-12.2) % Eosinophils % 3.8 (0.8-7.0) % Basophils % 1.0 (0.2-1.2) % Absolute Granulocytes 4.80 (1.78-5.38) x10^3/uL Basophils # 0.08 (0.01-0.08) x10^3/uL D-Dimer (0.0-0.50) mg/L Sodium 138 (135-145) mmol/L Potassium 4.2 (3.5-5.1) mmol/L Chloride 105 (98-107) mmol/L Carbon Dioxide 26 (22-30) mmol/L Anion Gap 10.6 (5-15) MEQ/L BUN 14 (9-20) mg/dL Creatinine 0.71 (0.66-1.25) mg/dL Estimated GFR 110.4 ML/MIN Glucose 110 H (74-106) mg/dL Calcium 8.5 (8.4-10.2) mg/dL Total Bilirubin 0.60 (0.2-1.3) mg/dL AST 26 (17-59) U/L ALT 23 (0-50) U/L Alkaline Phosphatase 55 (38-126) U/L Troponin I (0.000-0.033) ng/mL NT-Pro-B Natriuret Pep (<300) pg/mL Serum Total Protein 6.6 (6.3-8.2) g/dL Albumin 3.5 (3.5-5.0) g/dL - Radiology Exams Ordered Rad Exams-Entire Visit: Radiology Procedures Category Date Time Status CHEST 1 VIEW (PORTABLE) Stat Exams 01/09/25 22:22 Completed CHEST WITH CONTRAST [CT] Stat Exams 01/09/25 23:15 Completed - Procedures and Test Procedures and Tests throughout Hospitalization: Therapy Orders & Screens 01/10/25 07:29 EKG ROUTINE Comment: Diagnosis: Chest pain, ACS Discharge Exam General Appearance: no apparent distress Neurologic Exam: alert, oriented x 3, cooperative Eye Exam: PERRL Ears, Nose, Throat Exam: normal ENT inspection Neck Exam: normal inspection Respiratory Exam: normal breath sounds, lungs clear Cardiovascular Exam: regular rate/rhythm, normal heart sounds Gastrointestinal/Abdomen Exam: soft, normal bowel sounds Male Genitalia Exam: deferred Rectal Exam: deferred Back Exam: normal inspection Extremity Exam: normal inspection Skin Exam: normal color Final Diagnosis/Problem List - Final Discharge Diagnosis/Problem (1) Chest pain Current Visit: Yes Status: Acute Assessment & Plan: Left-sided chest pain relieved with ASA/NTG. Serial troponins 3 negative. EKG 2 normal sinus rhythm without ST-segment deviations. CT chest negative for central PE (Per Radiologist Dr. Stubbs on re-read as original report did not mention) and without acute pathology. No further pain during admission. No evidence of acute coronary syndrome; safe for discharge. Continue ASA 81 mg daily until cardiology follow-up completes formal risk assessment. Avoid strenuous exertion until cleared. Return precautions: recurrent chest pain, dyspnea, syncope, palpitations. Outpatient cardiology appointment arranged; encourage completion of recommended stress testing or additional evaluation as directed. Code(s): R07.9 - CHEST PAIN, UNSPECIFIED (2) Morbid obesity Current Visit: Yes Status: Acute Assessment & Plan: BMI consistent with morbid obesity; contributes to elevated baseline cardiovascular risk and exacerbates ALL. Encourage structured weight-loss plan and lifestyle modification. Recommend follow-up with primary care to discuss weight-management strategies, including nutrition counseling, pharmacotherapy, or bariatric referral if appropriate. Emphasized benefits for cardiovascular risk reduction and ALL improvement. Code(s): E66.01 - MORBID (SEVERE) OBESITY DUE TO EXCESS CALORIES (3) Sleep apnea in adult Current Visit: Yes Status: Acute Assessment & Plan: Continue use of home CPAP nightly. Reinforce adherence to therapy given increased long-term cardiovascular risk. Code(s): G47.30 - SLEEP APNEA, UNSPECIFIED - Discharge Discharge Date: 01/10/25 Disposition: Home, Self-Care Condition: Stable Prescriptions: New Aspirin EC 81 mg [Ecotrin 81 mg] 81 mg PO DAILY 30 Days #30 tablet Instructions: Angina Follow up with: TRIXIE RAZO MD [CONSULTING PHYSICIAN, CARDIOLOGY] - 01/17/25 2:15 pm REJI BEE [ACTIVE STAFF, FAMILY PRACTICE] - 01/15/25 9:00 am
[2025-01-10 10:43] VITALS: BP 134/76; PULSE 73; RESP 16; TEMP 97.6; O2SAT 97
== END 2025-01-10 13:23 | disposition home or self-care (01) ==
LOC: ED 22:01 → MED SURG 01-10 03:15
PROVIDERS: ADMIT Internal Medicine; ATTEND Internal Medicine
DX: R07.9 Chest pain, unspecified (principal); F17.200 Nicotine dependence, unspecified, uncomplicated; E66.01 Morbid (severe) obesity due to excess calories; G47.30 Sleep apnea, unspecified
CPT/HCPCS: 36415; 71045; 71260; 80053; 83880; 84484; 85025; 85379; 93005; 93041; 93268; 94760; 99285; G0378; Q3014